=== PATIENT | male | born 1960 | race Hispanic/Latino ===

== ENCOUNTER 2019-03-12 17:29 | Emergency (ER) | payer SELFPAY ==
--- NOTE | 2019-03-12 17:46 | Event Note ---
ED Screening Note Date of service: 03/12/19 Time: 17:41 ED Screening Note: This is a 58 y.o. M. that presents to the ER for medical clearance for detox and [place]. States discharged from [facility] today. Patient states he started drinking after discharge because he is having a bad da y. This initial assessment/diagnostic orders/clinical plan/treatment(s) is/are subject to change based on patients health status, clinical progression and re- assessment by fellow clinical providers in the ED. Further treatment and workup at subsequent clinical providers discretion. Patient/guardian urged not to elope from the ED as their condition may be serious if not clinically assessed and amando fuller. Initial orders include: Labs
[2019-03-12 18:18] LABS: Basophils # (Auto) 0.1 K/mm3 (0.0-0.1); Basophils % (Auto) 0.6 % (0.0-1.8); Eosinophils # (Auto) 0.2 K/mm3 (0.0-0.4); Eosinophils % (Auto) 2.3 % (0.0-4.3); Hematocrit 38.3 % (35.5-45.6); Hemoglobin 12.8 gm/dl (11.8-15.2); Lymphocytes # (Auto) 3.2 K/mm3 (1.2-5.4); Lymphocytes % (Auto) 31.7 % (13.4-35.0); Mean Corpuscular HGB Conc 34 % (32-34); Mean Corpuscular Volume 89 fl (84-94); Monocytes # (Auto) 0.8 K/mm3 (0.0-0.8); Monocytes % (Auto) 8.1 % (0.0-7.3); Platelet Count 173 K/mm3 (140-440); Red Cell Distribution Width 14.2 % (13.2-15.2)
[2019-03-12 18:38] LABS: BUN/Creatinine Ratio 21; Blood Urea Nitrogen 17 mg/dL (9-20); Calcium 8.8 mg/dL (8.4-10.2); Hemolysis Index 2
[2019-03-12 20:07] VITALS: BP 129/67
[2019-03-12] MEDS ORDERED: LORazepam 2 MG/ML VIAL IM PRN (20:25)
[2019-03-12] MEDS ORDERED: HALOPERIDOL LACTATE 5 MG/1 ML INJ IM PRN (20:25)
--- NOTE | 2019-03-12 20:25 | Emergency Department Report ---
ED Alcohol HPI - General Chief Complaint: Alcohol Stated Complaint: ALCOHOLISM Time Seen by Provider: 03/12/19 17:41 Source: patient, RN notes reviewed Mode of arrival: Ambulatory Limitations: Other (alcohol intoxication) - History of Present Illness Initial Comments: This is a 58-year-old gentleman. This patient is not known to this provider previously. Patient has a history of alcohol abuse, alcoholic ptosis, and alcohol dependence. The patient presents to the ER with a primary complaint to me of "I just want to sleep." He denies physical pain, and denies overdose. He makes no request for Ativan. MD Complaint: alcohol intoxication Last Drink: just MARZIPAN [employer]KER Chronic Alcohol Use: Yes Previous Visits for Alcohol Intoxication?: Yes Recent Trauma: No Associated Symptoms: denies other symptoms Treatments Prior to Arrival: none - Related Data Home Medications Medication Instructions Recorded Confirmed Last Taken Quetiapine Fumarate [SEROquel] 300 mg PO HS 03/13/19 03/13/19 Unknown Sertraline [Zoloft] 50 mg PO QDAY 03/13/19 03/13/19 03/12/19 Previous Rx's Medication Instructions Recorded Last Taken Type Multivitamin with Folic Acid [Cvs 400 mcg PO QDAY #30 tablet 03/13/19 Unknown Rx One Daily Essential Tablet] chlordiazePOXIDE [Librium] 25 mg PO Q6H PRN #25 capsule 03/13/19 Unknown Rx Allergies Allergy/AdvReac Type Severity Reaction Status Date / Time No Known Allergies Allergy Verified 11/12/17 17:06 ED Review of Systems ROS: Stated complaint: ALCOHOLISM Other details as noted in HPI Constitutional: denies: fever Eyes: denies: eye discharge ENT: denies: congestion Respiratory: denies: SOB with exertion Cardiovascular: denies: chest pain Gastrointestinal: denies: abdominal pain Neurological: denies: weakness Psychiatric: denies: homicidal thoughts, suicidal thoughts ED Past Medical Hx - Past Medical History Hx Hypertension: Yes Hx Congestive Heart Failure: No Hx Diabetes: No Hx Seizures: Yes Hx Psychiatric Treatment: Yes (Bipolar) Hx Asthma: No Hx COPD: No - Surgical History Additional Surgical History: trach - Social History Smoking Status: Never Smoker Substance Use Type: Alcohol - Medications Home Medications: Home Medications Medication Instructions Recorded Confirmed Last Taken Type Multivitamin with Folic Acid [Cvs 400 mcg PO QDAY #30 tablet 03/13/19 03/13/19 Unknown Rx One Daily Essential Tablet] Quetiapine Fumarate [SEROquel] 300 mg PO HS 03/13/19 03/13/19 Unknown History Sertraline [Zoloft] 50 mg PO QDAY 03/13/19 03/13/19 03/12/19 History chlordiazePOXIDE [Librium] 25 mg PO Q6H PRN #25 capsule 03/13/19 03/13/19 Unknown Rx ED Physical Exam - General Limitations: Other (intoxication) General appearance: alert, appears intoxicated - Head Head exam: Present: atraumatic, normocephalic - Eye Eye exam: Present: normal appearance, EOMI - ENT ENT exam: Present: normal exam, normal orophraynx, mucous membranes moist, normal external ear exam - Neck Neck exam: Present: normal inspection, full ROM. Absent: tenderness, meningismus - Respiratory Respiratory exam: Present: normal lung sounds bilaterally. Absent: respiratory distress - Cardiovascular Cardiovascular Exam: Present: regular rate, normal rhythm, normal heart sounds. Absent: bradycardia, tachycardia, irregular rhythm, systolic murmur, diastolic murmur, rubs, gallop - GI/Abdominal GI/Abdominal exam: Present: soft. Absent: distended, tenderness, guarding, rebound, rigid, pulsatile mass - Rectal Rectal exam: Present: deferred - Extremities Exam Extremities exam: Present: normal inspection, full ROM, other (2+ pulses noted in the bilateral upper, lower extremities. There is no long bone tenderness. Musculoskeletal compartments are soft. The pelvis is stable.). Absent: pedal edema, joint swelling, calf tenderness - Back Exam Back exam: Present: normal inspection, full ROM. Absent: tenderness, CVA tenderness (R), CVA tenderness (L), paraspinal tenderness, vertebral tenderness - Neurological Exam Neurological exam: Present: alert, other (there is no facial droop. The tongue is midline. The extraocular movements are intact bilaterally. Walking with a slightly unsteady gait. Sensation is intact to light touch in 4 extremities. 5/5 strength 4 extremities) - Psychiatric Psychiatric exam: Present: normal affect, normal mood - Skin Skin exam: Present: warm, dry, intact, normal color. Absent: rash ED Course Vital Signs 03/12/19 03/12/19 17:35 20:04 Temperature 96.6 F L 98 F Pulse Rate 96 H 97 H Respiratory 16 18 Rate Blood Pressure 131/84 Blood Pressure 129/67 [Left] O2 Sat by Pulse 97 95 Oximetry - Reevaluation(s) Reevaluation #1: 03/12/19 23:29 Differential diagnosis, including about limited to: Alcohol intoxication Assessment and plan: 58-year-old gentleman who is clinically intoxicated, initially living currently in his stretcher, who has not endorsed any complaints to myself. His external physical exam is unremarkable. Clinically, does not appear to be in any acute distress. There is no evidence of blunt trauma. Will observe for clinical sobriety. His exam at this point time is not consistent with alcohol withdrawal. The patient does not appear to have an acute medical emergency at this time. He does not appear to have an acute psychiatric emergency at this time. He is sleeping comfortably in his stretcher, and is in no acute distress. Nursing team to contact family to see if they can arrange pickup. The patient is medically suitable for placement in detox at this time, or can be medically cleared to go home, if family to pick him up Reevaluation #2: 03/13/19 01:24 Reassessed. Still intoxicated. Still walking with an unsteady gait. Cannot care for himself independently at this time secondary to intoxication. We'll phone calls made to the sister's phone number, no answer. Care will be transferred to the oncoming physician, Dr. Russell Sparrow, to d/c when clinically sober or when family able to come by and take care of the patient ED Medical Decision Making - Lab Data Result diagrams: 03/12/19 18:02 03/12/19 18:02 Vital Signs 03/12/19 03/12/19 17:35 20:04 Temperature 96.6 F L 98 F Pulse Rate 96 H 97 H Respiratory 16 18 Rate Blood Pressure 131/84 Blood Pressure 129/67 [Left] O2 Sat by Pulse 97 95 Oximetry Lab Results 03/12/19 03/12/19 03/12/19 Range/Units 18:00 18:00 18:02 WBC (4.5-11.0) K/mm3 RBC (3.65-5.03) M/mm3 Hgb (11.8-15.2) gm/dl Hct (35.5-45.6) % MCV (84-94) fl MCH (28-32) pg MCHC (32-34) % RDW (13.2-15.2) % Plt Count (140-440) K/mm3 Lymph % (Auto) (13.4-35.0) % [place] % (Auto) (0.0-7.3) % Eos % (Auto) (0.0-4.3) % Baso % (Auto) (0.0-1.8) % Lymph # (1.2-5.4) K/mm3 [place] # (0.0-0.8) K/mm3 Eos # (0.0-0.4) K/mm3 Baso # (0.0-0.1) K/mm3 Seg Neutrophils % (40.0-70.0) % Seg Neutrophils # (1.8-7.7) K/mm3 Sodium (137-145) mmol/L Potassium (3.6-5.0) mmol/L Chloride (98-107) mmol/L Carbon Dioxide (22-30) mmol/L Anion Gap mmol/L BUN (9-20) mg/dL Creatinine (0.8-1.5) mg/dL Estimated GFR ml/min BUN/Creatinine Ratio % Glucose (75-100) mg/dL Calcium (8.4-10.2) mg/dL Magnesium 2.30 (1.7-2.3) mg/dL Total Creatine Kinase 236 H (55-170) units/L Salicylates < 0.3 L (2.8-20.0) mg/dL Acetaminophen (10.0-30.0) ug/mL Bruce 0.1 (0.0-1.2) mmol/L Plasma/Serum Alcohol (0-0.07) % 03/12/19 03/12/19 03/12/19 Range/Units 18:02 18:02 18:02 WBC (4.5-11.0) K/mm3 RBC (3.65-5.03) M/mm3 Hgb (11.8-15.2) gm/dl Hct (35.5-45.6) % MCV (84-94) fl MCH (28-32) pg MCHC (32-34) % RDW (13.2-15.2) % Plt Count (140-440) K/mm3 Lymph % (Auto) (13.4-35.0) % [place] % (Auto) (0.0-7.3) % Eos % (Auto) (0.0-4.3) % Baso % (Auto) (0.0-1.8) % Lymph # (1.2-5.4) K/mm3 [place] # (0.0-0.8) K/mm3 Eos # (0.0-0.4) K/mm3 Baso # (0.0-0.1) K/mm3 Seg Neutrophils % (40.0-70.0) % Seg Neutrophils # (1.8-7.7) K/mm3 Sodium 142 (137-145) mmol/L Potassium 3.8 (3.6-5.0) mmol/L Chloride 105.2 (98-107) mmol/L Carbon Dioxide 20 L (22-30) mmol/L Anion Gap 21 mmol/L BUN 17 (9-20) mg/dL Creatinine 0.8 (0.8-1.5) mg/dL Estimated GFR > 60 ml/min BUN/Creatinine Ratio 21 % Glucose 103 H (75-100) mg/dL Calcium 8.8 (8.4-10.2) mg/dL Magnesium (1.7-2.3) mg/dL Total Creatine Kinase (55-170) units/L Salicylates (2.8-20.0) mg/dL Acetaminophen < 5.0 L (10.0-30.0) ug/mL Bruce (0.0-1.2) mmol/L Plasma/Serum Alcohol 0.17 H (0-0.07) % //19 Range/Units 18:02 WBC 10.1 (4.5-11.0) K/mm3 RBC 4.30 (3.65-5.03) M/mm3 Hgb 12.8 (11.8-15.2) gm/dl Hct 38.3 (35.5-45.6) % MCV 89 (84-94) fl MCH 30 (28-32) pg MCHC 34 (32-34) % RDW 14.2 (13.2-15.2) % Plt Count 173 (140-440) K/mm3 Lymph % (Auto) 31.7 (13.4-35.0) % [place] % (Auto) 8.1 H (0.0-7.3) % Eos % (Auto) 2.3 (0.0-4.3) % Baso % (Auto) 0.6 (0.0-1.8) % Lymph # 3.2 (1.2-5.4) K/mm3 [place] # 0.8 (0.0-0.8) K/mm3 Eos # 0.2 (0.0-0.4) K/mm3 Baso # 0.1 (0.0-0.1) K/mm3 Seg Neutrophils % 57.3 (40.0-70.0) % Seg Neutrophils # 5.8 (1.8-7.7) K/mm3 Sodium (137-145) mmol/L Potassium (3.6-5.0) mmol/L Chloride (98-107) mmol/L Carbon Dioxide (22-30) mmol/L Anion Gap mmol/L BUN (9-20) mg/dL Creatinine (0.8-1.5) mg/dL Estimated GFR ml/min BUN/Creatinine Ratio % Glucose (75-100) mg/dL Calcium (8.4-10.2) mg/dL Magnesium (1.7-2.3) mg/dL Total Creatine Kinase (55-170) units/L Salicylates (2.8-20.0) mg/dL Acetaminophen (10.0-30.0) ug/mL Bruce (0.0-1.2) mmol/L Plasma/Serum Alcohol (0-0.07) % - EKG Data -: EKG Interpreted by Vt - EKG Data 03/12/19 23:32 The EKG is a sinus rhythm, 91 beats minute, left axis, left anterior fascicular block, poor wave progression, QTC 446 ms, this is an abnormal EKG, there is no endorsement of chest pain, the EKG is not consistent with ST elevation myocardial infarction Critical care attestation.: If time is entered above; I have spent that time in minutes in the direct care of this critically ill patient, excluding procedure time. ED Disposition Clinical Impression: Alcohol abuse Disposition: DC-01 TO HOME OR SELFCARE Is pt being admited?: No Does the pt Need Aspirin: No Condition: Stable Instructions: Alcohol Intoxication (ED) Additional Instructions: Discontinue or minimize alcohol consumption. Take the medications as needed/directed. Follow up with the primary care doctor within the next month. Return to the emergency room right away with new, worsening or different symptoms not present on the initial emergency room evaluation. Long-term complications of chronic alcohol consumption included disability, addiction, paralysis, loss of quality of life. Prescriptions: Multivitamin with Folic Acid [Cvs One Daily Essential Tablet] 400 mcg PO QDAY #30 tablet chlordiazePOXIDE [Librium] 25 mg PO Q6H PRN #25 capsule PRN Reason: Alcohol Withdrawal Referrals: [facility] [Provider Group] - 3-5 Days [facility] [Provider Group] - 3-5 Days
== END 2019-03-13 06:50 | disposition home or self-care (01) ==
LOC: ED 17:29
DX: F10.129 Alcohol abuse with intoxication, unspecified (principal); I10 Essential (primary) hypertension; F31.9 Bipolar disorder, unspecified; Z79.899 Other long term (current) drug therapy
CPT/HCPCS: 36415; 80048; 80178; 80320; 82550; 83735; 85025; 93005; 93010; G0480

== ENCOUNTER 2019-03-13 08:51 | Inpatient (IN) | payer MEDICARE ==
--- NOTE | 2019-03-13 09:19 | Emergency Department Report ---
HPI - General Chief Complaint: Medical Clearance Time Seen by Provider: 03/13/19 09:11 - HPI HPI: 58-year-old male presents to the emergency department through triage with what appears to be alcohol intoxication. However the patient does appear to have a right-sided facial droop that was not previously seen or recorded from his ER visit yesterday. The patient does admit to history of alcoholism and bipolar disorder. He says that he was staying with his sister last night and started drinking this morning. There is also some report of the patient recently being at [facility]. However during the patient's ER visit yesterday he was discharged home to family's care. Since there is no previous history of facial droop, although there is some history of some type of alcoholic ptosis, a code stroke has been called. The patient is a poor historian secondary to his current condition. I attempted to call his sister to corroborate his story and see if there is any history of facial droop, Jesusitagoyo Barajas at [phone] but there was no answer and the voicemail was full. The patient's sister did call back and was able to provide some further information. Patient was at [facility] up until his discharge yesterday and she went to pick him up around 4 PM. When she did arrive the patient was already drunk, which was the reason he was at the facility to begin with for his alcohol dependence. She then tried to check him back in to get him help but she was referred to [facility]. They went to [facility] but was told they could not help him as he is currently intoxicated and was told to go to the emergency department. The patient was here until he was deemed clinically sober and was then discharged. The patient's sister did not know that he was discharged and he did not stay with her last night. It appears that the patient has been wandering around and then started drinking again. She says that he did not have any signs of facial droop when she left him yesterday at around 6:45 PM. However she says that he has "had this before and has a history of TIAs." ED Past Medical Hx - Past Medical History Previous Medical History?: Yes Hx Hypertension: Yes Hx Congestive Heart Failure: No Hx Diabetes: No Hx Seizures: Yes Hx Psychiatric Treatment: Yes (Bipolar) Hx Asthma: No Hx COPD: No - Surgical History Past Surgical History?: Yes Additional Surgical History: trach - Social History Smoking Status: Never Smoker Substance Use Type: Alcohol - Medications Home Medications: Home Medications Medication Instructions Recorded Confirmed Last Taken Type Multivitamin with Folic Acid [Cvs 400 mcg PO QDAY #30 tablet 03/13/19 03/13/19 Unknown Rx One Daily Essential Tablet] Quetiapine Fumarate [SEROquel] 300 mg PO HS 03/13/19 03/13/19 Unknown History Sertraline [Zoloft] 50 mg PO QDAY 03/13/19 03/13/19 03/12/19 History chlordiazePOXIDE [Librium] 25 mg PO Q6H PRN #25 capsule 03/13/19 03/13/19 Unknown Rx ED Review of Systems ROS: Stated complaint: MEDICAL CLEARANCE Other details as noted in HPI Comment: Unobtainable due to pts medical conditions Physical Exam - Physical Exam Physical Exam: GENERAL: The patient is well-developed well-nourished. HENT: Normocephalic. Atraumatic. Patient has moist mucous membranes. EYES: Extraocular motions are intact. Pupils equal reactive to light bilaterally. NECK: Supple. Trachea is midline. CHEST/LUNGS: Clear to auscultation. There is no respiratory distress noted. HEART/CARDIOVASCULAR: Regular. There is no tachycardia. There is no murmur. ABDOMEN: Abdomen is soft, nontender. Patient has normal bowel sounds. There is no abdominal distention. SKIN: Skin is warm and dry. NEURO: Patient is awake and oriented but does appear intoxicated. There is a right-sided is a labial fold paresis. Patient has slurred speech. MUSCULOSKELETAL: There is no tenderness or deformity. There is no limitation range of motion. There is no evidence of acute injury. ED Course - Consultations Consultation #1: Immediately after CT scan of the head was performed, the patient was seen by the telemedicine neurologist, Dr. Walker. He got a NIH stroke scale of 3 on his evaluation. He agrees that the patient is not a TPA candidate and does not require CT angiography studies but does recommend admission for MRI and further stroke workup. 03/13/19 15:33 ED Medical Decision Making - Lab Data Result diagrams: 03/13/19 10:08 03/13/19 10:08 - EKG Data -: EKG Interpreted by Me EKG shows normal: sinus rhythm, axis, intervals (prolonged VA interval), QRS complexes, ST-T waves Rate: normal - EKG Data When compared to previous EKG there are: previous EKG unavailable Interpretation: other (sinus, prolonged VA interval. No STEMI) - Radiology Data Radiology results: report reviewed CT head without contrast INDICATION : Stroke symptoms. TECHNIQUE: Axial imaging performed from the skull apex through the skull base without the use of contrast. All CT scans at this location are performed using CT dose reduction for ALARA by means of automated exposure control. COMPARISON: None FINDINGS: Parenchyma: No acute intracranial hemorrhage or parenchymal abnormality. Ventricles: Ventricles are normal in size and appear symmetric. Soft tissues: Soft tissues including the orbits appear normal. Bones: No acute osseous abnormality. Sinuses: Sinuses and mastoid air cells are clear. IMPRESSION: No acute abnormality. - Medical Decision Making This patient presents to the emergency department this morning through triage s tumbling, slurring his speech, diaphoretic, and with what appears to be a right- sided facial droop. The patient was here last night for alcohol intoxication and there was no record of there being a facial droop at that time. The patient's sister also confirms that while he does have a history of TIAs that he did not have a facial droop when she saw him yesterday evening as well. For this reason a code stroke was called. CT scan of the head without contrast did not show any acute intracranial abnormalities. The telemedicine neurologist on the patient and got a NIH stroke scale of 3. He does not appear to be a TPA candidate and does not require CT angiography studies but it was recommended that the patient be admitted for MRI of the brain and further stroke workup. His labs were mostly unremarkable except for a blood alcohol level of 0.22. Some of the patient's symptoms may be secondary to his alcohol intoxication but CVA/TIA cannot be ruled out at this time. Vital signs stable throughout his ED course. The patient was accepted for admission by the hospitalist service. - Differential Diagnosis CVA, TIA, alcohol intoxication Critical Care Time: Yes Critical care time in (mins) excluding proc time.: 31 Critical care attestation.: If time is entered above; I have spent that time in minutes in the direct care of this critically ill patient, excluding procedure time. Critical care time was spent on this patient and doing his initial evaluation, multiple re-evaluations, ordering and interpretation of labs and imaging, discussion with the telemedicine neurologist, discussion with the patient's sister. Critical Care Time: 31 minutes ED Disposition Clinical Impression: Alcohol abuse Stroke Qualifiers: CVA mechanism: unspecified Qualified Code(s): I63.9 - Cerebral infarction, unspecified Alcohol dependence Qualifiers: Substance use status: unspecified alcohol-induced disorder Qualified Code(s): F10.29 - Alcohol dependence with unspecified alcohol-induced disorder Disposition: DC-09 OP ADMIT IP TO THIS HOSP Is pt being admited?: Yes Condition: Serious Time of Disposition: 10:52
[2019-03-13] MEDS ORDERED: ASPIRIN 81 MG TAB CHEW PO ONE (09:48)
--- NOTE | 2019-03-13 09:48 | Emergency Department Report ---
ED Neuro Deficit HPI - General Chief Complaint: Medical Clearance Stated Complaint: MEDICAL CLEARANCE Time Seen by Provider: 03/13/19 09:11 Source: patient Mode of arrival: Ambulatory Limitations: No Limitations - History of Present Illness Initial Comments: [facility] Consult Services TeleStroke Metrics: LKW: 1800 yesterday Door Time: 0851 [facility] Contacted: 0916 [facility] at Bedside: 0920 NIHSS: 0934 Decision on Alteplase: Not to give as the patient's last known well time was yesterday. Interventional Candidate: Not a candidate as his symptoms are not consistent with a large vessel proximal occlusion. Chief Complaint: Altered mental status and right facial droop HPI: Asked to see this patient in emergent telemedicine consultation utilizing interactive audio and video technologies. ?Consultation was performed with assistance of ancillary / medical staff at bedside. ? Verbal consent to perform the examination with telemedicine was obtained. Patient agreed to proceed with the consultation for acute stroke protocol. 58-year-old left-handed white male who returns to the emergency room today for confusion and now right facial droop. Patient does not take any aspirin at baseline. He states he takes lithium, Zoloft, and Seroquel for his bipolar disorder. He recently started taking Ativan. He also reports a history of TIA last March, but cannot describe the symptoms. Patient has a long-standing history of alcohol abuse. Back in October 2018, he was admitted for tremors and alcoholic ketoacidosis. Patient apparently was discharged from an outside hospital yesterday on 03/12. He started drinking again and wanted to go to a detox center. However, he nee ded medical clearance and had come to [facility] ER last night. According to the ER team, the patients sister last saw him fine at 6 PM last night where he did not have a facial droop. Patient's labs were stable, and he was discharged from the ER last night. Patient apparently has been wondering throughout the streets and continues to drink. He comes back this morning confused and intoxicated. He was noted to have a new right facial droop. PMH: Bipolar disorder and TIA SOC: Negative for tobacco abuse or illicit drug use. Long-standing alcohol abuse. He lives with family. FMH: Negative for stroke. Positive for hypertension. ROS: 13 point review of systems were reviewed with the patient, and are all negative with the exception of the aforementioned in the history of present illness. VS: Blood pressure 136/81 Exam: Patient is in no apparent distress. Patient appears as stated age. No obvious acute respiratory or cardiac distress. Patient is well groomed and well-nourished. 1a- LOC: Keenly responsive - 0 1b- LOC questions: Answers both questions correctly - 0 1c- LOC commands- Performs both tasks correctly- 0 2- Gaze: Normal; no gaze paresis or gaze deviation - 0 3- Visual Antoine: normal, no Visual field deficit - 0 4- Facial movements: right facial palsy - 1 5- Upper limb motor right arm drift - 1 6- Lower limb motor - no drift - 0 7- Limb Coordination: absent ataxia - 0 8- Sensory: no sensory loss - 0 9- Language - No aphasia - 0 10- Speech - Mild dysarthria - 1 11- Neglect / Extinction - none found - 0 NIHSS score: 3 Diagnostic Data: CT head results are pending Labs from yesterday: WBC 10.1, hemoglobin 12.8, platelets 173, sodium 142, potassium 3.8, BUN 17, trending 0.8, blood glucose 103, alcohol level 0.17% Medical Data Reviewed: 1.Data?reviewed include clinical labs, radiology,?and medical tests;?? 2.Tests?results discussed w/performing or interpreting physician;?? 3.Obtaining/reviewing old medical records;? 4.Obtaining?case history from another source;? 5.Independent?review of image, tracing, or specimen.? Medical Decision Making: - Extensive number of diagnosis or management options are considered below.?? - Extensive amount of complex data reviewed.?? - High risk of complication and/or morbidity or mortality are associated with differential diagnostic considerations below.? - There may be?uncertain?outcome and increased probability of prolonged functional impairment or high probability of severe prolonged functional impairment associated with some of these differential diagnosis.? Differential Diagnosis for Stroke: 1.?Cardioembolic?stroke? 2. Small vessel disease/lacune? 3. Thromboembolic, [id number] mechanism? 4.?Hypercoagulable?state-related infarct? 5. Transient ischemic attack? 6. Thrombotic mechanism, large artery disease? Assessment: 1. Possible left MCA stroke 2. Alcohol intoxication Recommendations: Patient can be admitted to the hospital for further stroke work-up. Start the patient on a baby aspirin. Check MRI brain without contrast to rule out any acute intracranial process. Check MRA of the head and neck to evaluate his intracranial and extracranial blood vessels. Maintain the patient alcohol withdrawal protocol. Check echocardiogram to gauge his cardiac function. Maintain the patient on telemetry to look for paroxysmal atrial fibrillation. Check hemoglobin A1c and lipid panel. Consult PT, OT, and ST. Continue supportive care. Thank you for allowing [facility] to participate in the care of your patient. Please call me, Dr. Walker, with any questions at [phone]. Case discussed with the ER staff and Dr. Benito. Critical Care notation: I was called to see this critical patient emergently. I personally evaluated this critical patient for acute stroke evaluation, and determining their eligibility for IV Alteplase and interventional therapies. I have spent approximately 15 minutes with the patient, including time at bedside, time discussing the case with other physicians, reviewing plan of care, and time independently reviewing the records and scans.? - Related Data Home Medications: Home Medications Medication Instructions Recorded Confirmed Last Taken Bath 1,200 mg PO DAILY 03/12/19 03/12/19 Unknown SEROquel 300 mg PO HS 03/12/19 03/12/19 Unknown Zoloft 50 mg PO DAILY 03/12/19 03/12/19 Unknown Previous Rx's Medication Instructions Recorded Last Taken Type Multivitamin with Folic Acid [Cvs 400 mcg PO QDAY #30 tablet 03/13/19 Unknown Rx One Daily Essential Tablet] chlordiazePOXIDE [Librium] 25 mg PO Q6H PRN #25 capsule 03/13/19 Unknown Rx Allergies/Adverse Reactions: Allergies Allergy/AdvReac Type Severity Reaction Status Date / Time No Known Allergies Allergy Verified 11/12/17 17:06 ED Review of Systems ROS: Stated complaint: MEDICAL CLEARANCE Other details as noted in HPI ED Past Medical Hx - Past Medical History Previous Medical History?: Yes Hx Hypertension: Yes Hx Congestive Heart Failure: No Hx Diabetes: No Hx Seizures: Yes Hx Psychiatric Treatment: Yes (Bipolar) Hx Asthma: No Hx COPD: No - Surgical History Past Surgical History?: Yes Additional Surgical History: trach - Social History Smoking Status: Never Smoker Substance Use Type: Alcohol - Medications Home Medications: Home Medications Medication Instructions Recorded Confirmed Last Taken Type Bath 1,200 mg PO DAILY 03/12/19 03/12/19 Unknown History SEROquel 300 mg PO HS 03/12/19 03/12/19 Unknown History Zoloft 50 mg PO DAILY 03/12/19 03/12/19 Unknown History Multivitamin with Folic Acid [Cvs 400 mcg PO QDAY #30 tablet 03/13/19 Unknown Rx One Daily Essential Tablet] chlordiazePOXIDE [Librium] 25 mg PO Q6H PRN #25 capsule 03/13/19 Unknown Rx ED Neuro Physical Exam - General Limitations: No Limitations Suspected Stroke: Yes - NIHSS Assessment Interval: Baseline 1a. Level of Consciousness: alert/keenly responsive 1b. LOC Questions: answers both correctly 1c. LOC Commands: performs tasks correctly 2. Best Gaze: normal 3. Visual: no visual loss 4. Facial Palsy: minor paralysis 5b. Motor Arm Right: drift 5a. Motor Arm Left: no drift 6a. Motor Leg Left: no drift 6b. Motor Leg Right: no drift 7. Limb Ataxia: absent 8. Sensory: normal 9. Best Language: no aphasia 10. Dysarthria: mild/moderate dysarthria 11. Extinction/Inattention: no abnormality Total Score: 3 Stroke Severity: Minor Stroke - Lab Data Lab Results 03/13/19 Range/Units 09:25 POC Glucose 110 H (70-105) Critical care attestation.: If time is entered above; I have spent that time in minutes in the direct care of this critically ill patient, excluding procedure time. ED Disposition Clinical Impression: Stroke Disposition: - OP ADMIT IP TO THIS HOSP Is pt being admited?: Yes Does the pt Need Aspirin: Yes Condition: Stable Referrals: PRIMARY CARE, [Referring] - 3-5 Days
--- NOTE | 2019-03-13 09:49 | Cat Scan Report ---
CT head without contrast INDICATION : Stroke symptoms. TECHNIQUE: Axial imaging performed from the skull apex through the skull base without the use of con trast. All CT scans at this location are performed using CT dose reduction for ALARA by means of aut omated exposure control. COMPARISON: None FINDINGS: Parenchyma: No acute intracranial hemorrhage or parenchymal abnormality. Ventricles: Ventricles are normal in size and appear symmetric. Soft tissues: Soft tissues including the orbits appear normal. Bones: No acute osseous abnormality. Sinuses: Sinuses and mastoid air cells are clear. IMPRESSION: No acute abnormality. COMMUNICATION: Time of Communication (BATCH PLANT OPERATOR/CDT): 8:44 AM Licensed Practitioner Receiving Report: Dr. Benito Signer Name: Jayme Carlisle MD Signed: 03/13/2019 9:44 AM Workstation Name: [id number]
[2019-03-13 10:20] LABS: Basophils # (Auto) 0.1 K/mm3 (0.0-0.1); Basophils % (Auto) 0.8 % (0.0-1.8); Eosinophils # (Auto) 0.2 K/mm3 (0.0-0.4); Eosinophils % (Auto) 2.3 % (0.0-4.3); Hematocrit 38.4 % (35.5-45.6); Hemoglobin 12.9 gm/dl (11.8-15.2); Lymphocytes % (Auto) 27.5 % (13.4-35.0); Mean Corpuscular HGB Conc 34 % (32-34); Mean Corpuscular Volume 90 fl (84-94); Monocytes # (Auto) 0.6 K/mm3 (0.0-0.8); Monocytes % (Auto) 8.2 % (0.0-7.3); Platelet Count 171 K/mm3 (140-440); Red Blood Count 4.28 M/mm3 (3.65-5.03); Red Cell Distribution Width 14.2 % (13.2-15.2)
[2019-03-13 10:29] LABS: INR 1.11 (0.87-1.13)
[2019-03-13 10:34] LABS: Creatine Kinase MB 6.5 ng/mL (0.0-4.0)
[2019-03-13 10:36] LABS: Alanine Aminotransferase 14 units/L (7-56); Albumin 4.3 g/dL (3.9-5); BUN/Creatinine Ratio 20; Blood Urea Nitrogen 14 mg/dL (9-20); Calcium 8.6 mg/dL (8.4-10.2); Hemolysis Index 1
[2019-03-13 10:39] LABS: Partial Thromboplastin Time 26.4 Sec. (24.2-36.6)
[2019-03-13] MEDS ORDERED: THIAMINE 100 MG, FOLIC ACID 1 MG, MULTIPLE VITAMIN INJ, ADULT 10 ML in SODIUM CHLORIDE ... IV ONE (11:00)
[2019-03-13 11:19] LABS: Bilirubin,Urine NEG (Negative); Blood,Urine SM (Negative); Color,Urine Straw (Yellow); Mucus,Urine FEW /HPF; Protein,Urine <15 mg/dL mg/dL (Negative); Urobilinogen,Urine < 2.0 mg/dL (<2.0)
[2019-03-13 11:28] LABS: Amphetamine Screen,Urine PRESUMPTIVE NEGATIVE; Benzodiazepines Screen,Urine PRESUMPTIVE NEGATIVE; Cannabinoid Screen,Urine PRESUMPTIVE NEGATIVE; Cocaine Screen,Urine PRESUMPTIVE NEGATIVE; Methadone Screen,Urine PRESUMPTIVE NEGATIVE; Opiate Screen,Urine PRESUMPTIVE NEGATIVE
[2019-03-13] MEDS ORDERED: ASPIRIN 81 MG TAB CHEW ONE (11:43)
[2019-03-13] MEDS ORDERED: ACETAMINOPHEN 325 MG TAB PO PRN (12:06)
[2019-03-13] MEDS ORDERED: MORPHINE 2 MG/1 ML INJ IV PRN (12:06)
[2019-03-13] MEDS ORDERED: ONDANSETRON 4 MG/2 ML INJ IV PRN (12:06)
[2019-03-13] MEDS ORDERED: chlordiazePOXIDE 25 MG CAP PO PRN (12:13)
[2019-03-13] MEDS: ENOXAPARIN 40 MG/0.4 ML INJ SUB-Q SCH (12:36)
--- NOTE | 2019-03-13 17:15 | History and Physical Report ---
History of Present Illness Date of examination: 03/13/19 Date of admission: 03/13/19 10:52 Chief complaint: Facial droop rule out stroke. History of present illness: Patient is a 58-year-old male that presents to ED with confusion and right facial droop. Patient has a history of EtOH abuse. Patient was actually seen and admitted to [facility]. Patient was just discharged yesterday and one sister arrived to the facility patient already had been drinking. They were unsuccessful to get the ration back in another rehabilitation facility [facility] and therefore went home. Patient did not stay for extremely short period of time and began drinking again. Patient family member noted that he may have had a right facial droop. Therefore patient was admitted to evaluate for stroke. At this present time patient states that he denied any headache fever chills he did state that when he drinks sometimes is happening and patient also states that this facial asymmetry is old and not new. Patient is bottle course was complicated by him going into alcohol withdrawal. When he became extremely agitated and pulled IV lines out and required down time. Therefore further history was unavailable secondary to behavior. A shunt was noted to be on medications including lithium Zoloft and Seroquel. Also patient states he just started Ativan recently. Head CT in ED was normal. She denied any fever or chills no nausea vomiting no chest pain or shortness of breath. Past History Past Medical History: GERD. denies: acute MA, atrial fib, arrhythmia, anemia, arthritis, CAD, cancer, diabetes, DVT, ESRD, heart failure, hepatitis, hyperthyroidism, hypertension, liver disease, pulmonary embolism, stroke Past Surgical History: No surgical history Social history: no significant social history, single, lives with family, alcohol abuse Family history: no significant family history Medications and Allergies Allergies Allergy/AdvReac Type Severity Reaction Status Date / Time No Known Allergies Allergy Verified 11/12/17 17:06 Home Medications Medication Instructions Recorded Confirmed Last Taken Type Multivitamin with Folic Acid [Cvs 400 mcg PO QDAY #30 tablet 03/13/19 03/13/19 Unknown Rx One Daily Essential Tablet] Quetiapine Fumarate [SEROquel] 300 mg PO HS 03/13/19 03/13/19 Unknown History Sertraline [Zoloft] 50 mg PO QDAY 03/13/19 03/13/19 03/12/19 History chlordiazePOXIDE [Librium] 25 mg PO Q6H PRN #25 capsule 03/13/19 03/13/19 U nknown Rx Active Meds: Active Medications Acetaminophen (Tylenol) 650 mg PO Q4H PRN PRN Reason: Pain MILD(1-3)/Fever >100.5/JHA Chlordiazepoxide HCl (Librium) 50 mg PO Q1HR PRN PRN Reason: Odette 8 Last Admin: 03/13/19 14:25 Dose: 50 mg Documented by: Enoxaparin Sodium (Lovenox) 40 mg SUB-Q QDAY [facility] Last Admin: 03/13/19 12:36 Dose: 40 mg Documented by: Lorazepam (Ativan) 2 mg IV Q1HR PRN PRN Reason: Odette 01-29 Morphine Sulfate (Morphine) 2 mg IV Q4H PRN PRN Reason: Pain, Moderate (4-6) Ondansetron HCl (Zofran) 4 mg IV Q8H PRN PRN Reason: Nausea And Vomiting Sodium Chloride (Sodium Chloride Flush Syringe 10 Ml) 10 ml IV BID [facility] Last Admin: 03/13/19 12:24 Dose: 10 ml Documented by: Sodium Chloride (Sodium Chloride Flush Syringe 10 Ml) 10 ml IV PRN PRN PRN Reason: LINE FLUSH Review of Systems Constitutional: no weight loss, no weight gain, no fever, no chills, no sweats, no night sweats, no anorexia, no malaise, no lethargy Ears, nose, mouth and throat: no ear pain, no tinnitis, no nasal congestion, no epistaxis, no bleeding gums, no mouth pain, no dysphagia, no hoarseness, no sore throat, no vertigo Cardiovascular: no chest pain, no orthopnea, no rapid/irregular heart beat, no edema, no lightheadedness, no shortness of breath, no paroxysmal nocturnal dyspnea, no decreased exercise tolerance Respiratory: no cough, no excessive sputum, no hemoptysis, no shortness of breath, no wheezing, no pleurisy, no pain, no sleep apnea, no respiratory infections, no home oxygen Gastrointestinal: no nausea, no vomiting, no diarrhea, no constipation, no change in bowel habits, no melena, no hematochezia, no loss of appetite, no early satiety Rectal: no pain, no incontinence, no bleeding, no hemorrhoids, no flatulence Musculoskeletal: muscle weakness, loss of height, no neck stiffness, no low back pain, no shooting leg pain, no redness of joints, no morning stiffness, no muscle cramps, no myalgias, no limitation of motion, no gait dysfunction Integumentary: no redness, no sores Neurological: weakness, lack of coordination, change in mentation, no head injury, no transient paralysis, no paralysis, no parathesias, no numbness, no tingling, no seizures, no syncope, no tremors, no ataxia, no vertigo, no headaches, no migraines, no convulsions, no motor disturbance, no sensory defi cit Psychiatric: anxiety, sleep disturbances, no insomnia, no change in appetite, no suicidal ideation, no hallucinations, no depression, no hopelessness, no anhedonia, no difficulties concentrating, no confusion, no sadness/tearfullness, no mood swings Endocrine: no cold intolerance, no heat intolerance, no excessive thirst, no polydipsia, no nocturia, no excessive sweating, no weight change, no deepening of the voice, no high blood sugars, no low blood sugars, no recent glucocorticoid use, no other Hematologic/Lymphatic: no easy bleeding, no thrombophilia Allergic/Immunologic: no allergic rhinitis Exam - Constitutional Vitals: Temp Pulse Resp BP Pulse Ox 97.9 F 75 18 138/89 95 03/13/19 16:13 03/13/19 16:13 03/13/19 16:13 03/13/19 16:13 03/13/19 16:13 General appearance: Present: no acute distress, well-nourished - EENT Eyes: Present: PERRL ENT: hearing intact, clear oral mucosa, other (patient does have facial asymmetry on the right side. Especially involving the lips. 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 Absent: rub, click - Extremities Extremities: pulses symmetrical, No edema Peripheral Pulses: within normal limits - Abdominal General gastrointestinal: Present: soft, non-tender, non-distended, normal bowel sounds Male genitourinary: Present: normal - Integumentary Integumentary: Present: clear, warm, dry - Musculoskeletal Musculoskeletal: gait normal, strength equal bilaterally - Psychiatric Psychiatric: appropriate mood/affect, intact judgment & insight - Neurologic Neurologic: CNII-XII intact, moves all extremities Results - Labs CBC & Chem 7: 03/13/19 10:08 03/13/19 10:08 Labs: Laboratory Last Values WBC 7.3 K/mm3 (4.5-11.0) 03/13/19 10:08 RBC 4.28 M/mm3 (3.65-5.03) 03/13/19 10:08 Hgb 12.9 gm/dl (11.8-15.2) 03/13/19 10:08 Hct 38.4 % (35.5-45.6) 03/13/19 10:08 MCV 90 fl (84-94) 03/13/19 10:08 MCH 30 pg (28-32) 03/13/19 10:08 MCHC 34 % (32-34) 03/13/19 10:08 RDW 14.2 % (13.2-15.2) 03/13/19 10:08 Plt Count 171 K/mm3 (140-440) 03/13/19 10:08 Lymph % (Auto) 27.5 % (13.4-35.0) 03/13/19 10:08 Alexander % (Auto) 8.2 % (0.0-7.3) H 03/13/19 10:08 Eos % (Auto) 2.3 % (0.0-4.3) 03/13/19 10:08 Baso % (Auto) 0.8 % (0.0-1.8) 03/13/19 10:08 Lymph # 2.0 K/mm3 (1.2-5.4) 03/13/19 10:08 Alexander # 0.6 K/mm3 (0.0-0.8) 03/13/19 10:08 Eos # 0.2 K/mm3 (0.0-0.4) 03/13/19 10:08 Baso # 0.1 K/mm3 (0.0-0.1) 03/13/19 10:08 Seg Neutrophils % 61.2 % (40.0-70.0) 03/13/19 10:08 Seg Neutrophils # 4.5 K/mm3 (1.8-7.7) 03/13/19 10:08 PT 14.0 Sec. (12.2-14.9) 03/13/19 10:08 INR 1.11 (0.87-1.13) 03/13/19 10:08 APTT 26.4 Sec. (24.2-36.6) 03/13/19 10:08 Sodium 143 mmol/L (137-145) 03/13/19 10:08 Potassium 3.6 mmol/L (3.6-5.0) 03/13/19 10:08 Chloride 105.6 mmol/L (98-107) 03/13/19 10:08 Carbon Dioxide 20 mmol/L (22-30) L 03/13/19 10:08 21 mmol/L 03/13/19 10:08 BUN 14 mg/dL (9-20) 03/13/19 10:08 0.7 mg/dL (0.8-1.5) L 03/13/19 10:08 Estimated GFR > 60 ml/min 03/13/19 10:08 20 % 03/13/19 10:08 Glucose 99 mg/dL (75-100) 03/13/19 10:08 POC Glucose 110 (70-105) H 03/13/19 09:25 Calcium 8.6 mg/dL (8.4-10.2) 03/13/19 10:08 0.70 mg/dL (0.1-1.2) 03/13/19 10:08 AST 18 units/L (5-40) 03/13/19 10:08 ALT 14 units/L (7-56) 03/13/19 10:08 71 units/L (35-129) 03/13/19 10:08 238 units/L (55-170) H 03/13/19 10:08 CK-MB (CK-2) 6.5 ng/mL (0.0-4.0) H 03/13/19 10:08 CK-MB (CK-2) Rel Index 2.7 (0-4) 03/13/19 10:08 < 0.010 ng/mL (0.00-0.029) 03/13/19 10:08 7.0 g/dL (6.3-8.2) 03/13/19 10:08 4.3 g/dL (3.9-5) 03/13/19 10:08 1.6 % 03/13/19 10:08 Straw (Yellow) 03/13/19 10:48 Clear (Clear) 03/13/19 10:48 6.0 (5.0-7.0) 03/13/19 10:48 Ur Specific [place] 1.008 (1.003-1.030) 03/13/19 10:48 <15 mg/dl mg/dL (Negative) 03/13/19 10:48 Neg mg/dL (Negative) 03/13/19 10:48 Neg mg/dL (Negative) 03/13/19 10:48 Sm (Negative) 03/13/19 10:48 Neg (Negative) 03/13/19 10:48 Neg (Negative) 03/13/19 10:48 < 2.0 mg/dL (<2.0) 03/13/19 10:48 Ur Leukocyte Esterase Neg (Negative) 03/13/19 10:48 1.0 /HPF (0.0-6.0) 03/13/19 10:48 1.0 /HPF (0.0-6.0) 03/13/19 10:48 Few /HPF 03/13/19 10:48 Presumptive negative 03/13/19 10:48 Presumptive negative 03/13/19 10:48 Ur Barbiturates Screen Presumptive negative 03/13/19 10:48 Ur Phencyclidine Scrn Presumptive negative 03/13/19 10:48 Ur Amphetamines Screen Presumptive negative 03/13/19 10:48 U Benzodiazepines Scrn Presumptive negative 03/13/19 10:48 Presumptive negative 03/13/19 10:48 U Marijuana (THC) Screen Presumptive negative 03/13/19 10:48 Disclamer 03/13/19 10:48 Plasma/Serum Alcohol 0.22 % (0-0.07) H 03/13/19 10:08 - Imaging and Cardiology EKG: report reviewed, image reviewed CT Scan - head: report reviewed, image reviewed Assessment and Plan Advance Directives: No (cognition) VTE prophylaxis?: Chemical Plan of care discussed with patient/family: Yes - Patient Problems (1) Alcohol abuse Current Visit: Yes Status: Acute Plan to address problem: I do feel this is old and the majority of patient's symptoms are secondary to alcohol use with the concurrent use of Seroquel and Ativan and lithium. May benefit from lithium level. The patient may require a follow-up rehabilitation stent upon discharge. Patient waiting to alcohol withdrawal. We'll place patient on CIWA protocol. With addition of lithium. (2) Stroke Current Visit: Yes Status: Acute Qualifiers: CVA mechanism: unspecified Qualified Code(s): I63.9 - Cerebral infarction, unspecified Plan to address problem: At present unable to rule out CVA. Unlikely I do think his focal deficit is old at this time. We'll hold current antipsychotic medications. Place patient on CIWA protocol and will reintroduce them as indicated. We'll restart Seroquel at some point and give Ativan is with the CIWA protocol. Will follow with MRI MRA to rule out CVA.
[2019-03-13] MEDS: LORazepam 2 MG/ML VIAL IV PRN (18:12)
[2019-03-14] MEDS: LORazepam 2 MG/ML VIAL IV PRN ×2 (05:29→15:54)
[2019-03-14] MEDS: ENOXAPARIN 40 MG/0.4 ML INJ SUB-Q SCH (09:46)
--- NOTE | 2019-03-14 11:31 | Progress Note ---
Assessment and Plan - Patient Problems (1) Alcohol abuse Current Visit: Yes Status: Acute Plan to address problem: I do feel this is old and the majority of patient's symptoms are secondary to alcohol use with the concurrent use of Seroquel and Ativan and lithium. May benefit from lithium level. The patient may require a follow-up rehabilitation stent upon discharge. Patient waiting to alcohol withdrawal. We'll place patient on CIWA protocol. With addition of lithium. (2) Stroke Current Visit: Yes Status: Acute Qualifiers: CVA mechanism: unspecified Qualified Code(s): I63.9 - Cerebral infarction, unspecified Plan to address problem: At present unable to rule out CVA. Unlikely I do think his focal deficit is old at this time. We'll hold current antipsychotic medications. Place patient on CIWA protocol and will reintroduce them as indicated. We'll restart Seroquel at some point and give Ativan is with the CIWA protocol. Will follow with MRI MRA to rule out CVA. History Interval history: Patient now doing much better. Sitting up in bed alert talking in full sentences. No longer has facial droop. Very mild problem with dentures. With speaking. Patient states he wants to go to [place] now to help with his alcohol. He has no headaches no weakness feels good. Are pending. Hospitalist Physical - Constitutional Vitals: Temp Pulse Resp BP Pulse Ox 97.9 F 79 18 151/98 95 03/14/19 08:08 03/14/19 08:08 03/14/19 08:08 03/14/19 08:08 03/14/19 08:08 General appearance: Present: no acute distress, well-nourished - EENT Eyes: Present: PERRL, EOM intact ENT: hearing intact, clear oral mucosa, dentition normal, other (very minimal facial droop most likely secondary to alcohol and has always been neurologic he said.) - Neck Neck: Present: supple, normal ROM - Respiratory Respiratory effort: normal - Cardiovascular Rhythm: irregularly irregular - Extremities Extremities: no ischemia, No edema, normal temperature, normal color Peripheral Pulses: within normal limits - Abdominal General gastrointestinal: soft, non-tender, non-distended, normal bowel sounds, no hepatomegaly, no splenomegaly, no mass - Integumentary Integumentary: Present: clear, warm, dry - Psychiatric Psychiatric: appropriate mood/affect, intact judgment & insight, memory intact - Neurologic Neurologic: moves all extremities Results - Labs CBC & Chem 7: 03/13/19 10:08 03/13/19 10:08 Labs: Laboratory Last Values WBC 7.3 K/mm3 (4.5-11.0) 03/13/19 10:08 RBC 4.28 M/mm3 (3.65-5.03) 03/13/19 10:08 Hgb 12.9 gm/dl (11.8-15.2) 03/13/19 10:08 Hct 38.4 % (35.5-45.6) 03/13/19 10:08 MCV 90 fl (84-94) 03/13/19 10:08 MCH 30 pg (28-32) 03/13/19 10:08 MCHC 34 % (32-34) 03/13/19 10:08 RDW 14.2 % (13.2-15.2) 03/13/19 10:08 Plt Count 171 K/mm3 (140-440) 03/13/19 10:08 Lymph % (Auto) 27.5 % (13.4-35.0) 03/13/19 10:08 [place] % (Auto) 8.2 % (0.0-7.3) H 03/13/19 10:08 Eos % (Auto) 2.3 % (0.0-4.3) 03/13/19 10:08 Baso % (Auto) 0.8 % (0.0-1.8) 03/13/19 10:08 Lymph # 2.0 K/mm3 (1.2-5.4) 03/13/19 10:08 [place] # 0.6 K/mm3 (0.0-0.8) 03/13/19 10:08 Eos # 0.2 K/mm3 (0.0-0.4) 03/13/19 10:08 Baso # 0.1 K/mm3 (0.0-0.1) 03/13/19 10:08 Seg Neutrophils % 61.2 % (40.0-70.0) 03/13/19 10:08 Seg Neutrophils # 4.5 K/mm3 (1.8-7.7) 03/13/19 10:08 PT 14.0 Sec. (12.2-14.9) 03/13/19 10:08 INR 1.11 (0.87-1.13) 03/13/19 10:08 APTT 26.4 Sec. (24.2-36.6) 03/13/19 10:08 Sodium 143 mmol/L (137-145) 03/13/19 10:08 Potassium 3.6 mmol/L (3.6-5.0) 03/13/19 10:08 Chloride 105.6 mmol/L (98-107) 03/13/19 10:08 Carbon Dioxide 20 mmol/L (22-30) L 03/13/19 10:08 21 mmol/L 03/13/19 10:08 BUN 14 mg/dL (9-20) 03/13/19 10:08 0.7 mg/dL (0.8-1.5) L 03/13/19 10:08 Estimated GFR > 60 ml/min 03/13/19 10:08 20 % 03/13/19 10:08 Glucose 99 mg/dL (75-100) 03/13/19 10:08 POC Glucose 110 (70-105) H 03/13/19 09:25 Calcium 8.6 mg/dL (8.4-10.2) 03/13/19 10:08 0.70 mg/dL (0.1-1.2) 03/13/19 10:08 AST 18 units/L (5-40) 03/13/19 10:08 ALT 14 units/L (7-56) 03/13/19 10:08 71 units/L (35-129) 03/13/19 10:08 238 units/L (55-170) H 03/13/19 10:08 CK-MB (CK-2) 6.5 ng/mL (0.0-4.0) H 03/13/19 10:08 CK-MB (CK-2) Rel Index 2.7 (0-4) 03/13/19 10:08 < 0.010 ng/mL (0.00-0.029) 03/13/19 10:08 7.0 g/dL (6.3-8.2) 03/13/19 10:08 4.3 g/dL (3.9-5) 03/13/19 10:08 1.6 % 03/13/19 10:08 Straw (Yellow) 03/13/19 10:48 Clear (Clear) 03/13/19 10:48 6.0 (5.0-7.0) 03/13/19 10:48 Ur Specific [place] 1.008 (1.003-1.030) 03/13/19 10:48 <15 mg/dl mg/dL (Negative) 03/13/19 10:48 Neg mg/dL (Negative) 03/13/19 10:48 Neg mg/dL (Negative) 03/13/19 10:48 Sm (Negative) 03/13/19 10:48 Neg (Negative) 03/13/19 10:48 Neg (Negative) 03/13/19 10:48 < 2.0 mg/dL (<2.0) 03/13/19 10:48 Ur Leukocyte Esterase Neg (Negative) 03/13/19 10:48 1.0 /HPF (0.0-6.0) 03/13/19 10:48 1.0 /HPF (0.0-6.0) 03/13/19 10:48 Few /HPF 03/13/19 10:48 Presumptive negative 03/13/19 10:48 Presumptive negative 03/13/19 10:48 Ur Barbiturates Screen Presumptive negative 03/13/19 10:48 Ur Phencyclidine Scrn Presumptive negative 03/13/19 10:48 Ur Amphetamines Screen Presumptive negative 03/13/19 10:48 U Benzodiazepines Scrn Presumptive negative 03/13/19 10:48 Presumptive negative 03/13/19 10:48 U Marijuana (THC) Screen Presumptive negative 03/13/19 10:48 Disclamer 03/13/19 10:48 Plasma/Serum Alcohol 0.22 % (0-0.07) H 03/13/19 10:08 Active Medications - Current Medications Current Medications: Generic Name Dose Route Start Last Admin Trade Name Freq PRN Reason Stop Dose Admin Acetaminophen 650 mg 03/13/19 12:06 Tylenol PO Q4H PRN Pain MILD(1-3)/Fever >100.5/JHA Chlordiazepoxide HCl 50 mg 03/13/19 12:13 03/13/19 14:25 Librium PO 50 mg Q1HR PRN Administration CIWA-Ar 8-15 Enoxaparin Sodium 40 mg 03/13/19 13:00 03/14/19 09:46 Lovenox SUB-Q 40 mg QDAY MAMTA Administration Lorazepam 2 mg 03/13/19 12:13 03/14/19 05:29 Ativan IV 2 mg Q1HR PRN Administration CIWA-Ar 8-15 Morphine Sulfate 2 mg 03/13/19 12:06 Morphine IV Q4H PRN Pain, Moderate (4-6) Ondansetron HCl 4 mg 03/13/19 12:06 Zofran IV Q8H PRN Nausea And Vomiting Sodium Chloride 10 ml 03/13/19 13:00 03/14/19 09:47 Sodium Chloride Flush Syringe 10 Ml IV 10 ml BID MAMTA Administration Sodium Chloride 10 ml 03/13/19 12:06 Sodium Chloride Flush Syringe 10 Ml IV PRN PRN LINE FLUSH
--- NOTE | 2019-03-14 11:35 | Discharge Summary ---
Providers - Providers Date of Admission: 03/13/19 10:52 Date of discharge: 03/14/19 Attending physician: CABRERA ACOSTA 03/13/19 13:17 Consult to Wound/ET Nurse [CONS] Routine Reason For Exam: wound eval Primary care physician: ASSOCIATE PROFESSOR OF FORESTRY Hospitalization Condition: Fair Pertinent studies: MRI results within normal limits no CVA. Hospital course: She presented with what appeared to be facial droop. Family thought it may have been new. Patient states it's always been there. For long time. I did see what he mentioned but it did improve after acute alcohol intoxication. Patient responded very well CIWA protocol doing well wants to go to [place] for further treatment of alcohol. Disposition: DC-01 TO HOME OR SELFCARE - Discharge Diagnoses (1) Alcohol abuse Status: Acute Comment: We'll transfer to report. Did speak to vp digital marketing social media and crm they stated patient can go walk himself in for help. (2) Stroke Status: Acute Qualifiers: CVA mechanism: unspecified Qualified Code(s): I63.9 - Cerebral infarction, unspecified Comment: No evidence of stroke on CT scan/MRI. Core Measure Documentation - Palliative Care Palliative Care/ Comfort Measures: Not Applicable - Core Measures Any of the following diagnoses?: none Exam - Constitutional Vitals: Temp Pulse Resp BP Pulse Ox 97.9 F 79 18 151/98 95 03/14/19 08:08 03/14/19 08:08 03/14/19 08:08 03/14/19 08:08 03/14/19 08:08 General appearance: Present: no acute distress, well-nourished - EENT Eyes: Present: PERRL ENT: hearing intact, clear oral mucosa, other (minimal lip asymmetry) - Neck Neck: Present: supple, normal ROM - Respiratory Respiratory effort: normal Respiratory: bilateral: CTA - Cardiovascular Heart Sounds: Present: S1 & S2. Absent: rub, click - Extremities Extremities: pulses symmetrical, No edema Peripheral Pulses: within normal limits - Abdominal General gastrointestinal: Present: soft, non-tender, non-distended, normal bowel sounds Male genitourinary: Present: normal - Integumentary Integumentary: Present: clear, warm, dry - Musculoskeletal Musculoskeletal: gait normal, strength equal bilaterally - Psychiatric Psychiatric: appropriate mood/affect, intact judgment & insight - Neurologic Neurologic: CNII-XII intact, moves all extremities Plan Activity: no restrictions Diet: regular, other ([place] no etoh) Follow up with: PRIMARY CARE, [Primary Care Provider] - 3-5 Days Prescriptions: Multivitamin with Folic Acid [Cvs One Daily Essential Tablet] 400 mcg PO QDAY #30 tablet chlordiazePOXIDE [Librium] 25 mg PO Q6H PRN #25 capsule PRN Reason: Alcohol Withdrawal Quetiapine Fumarate [SEROquel] 300 mg PO HS #30 tablet Sertraline [Zoloft] 50 mg PO QDAY #30 tablet
--- NOTE | 2019-03-14 14:45 | Magnetic Resonance Report ---
MRI BRAIN WITHOUT CONTRAST INDICATION / CLINICAL INFORMATION: cva. TECHNIQUE: Multiplanar, multisequence MR images of the brain were obtained. COMPARISON: Head CT 03/13/2019 FINDINGS: BRAIN / INTRACRANIAL CONTENTS: Parenchymal volume loss is demonstrated. Dilatation of the cortical mckoy lci and ventricular system is noted. This is greater than expected for the patient's stated age of 58 . Incidental note is made of persistence of the cava septum pellucidum. Several scattered subcortical , periventricular and deep white matter hyperintensities noted consistent with mild microvascular isc hemic changes. There is no mass effect. No evidence of intracranial hemorrhage or extra-axial fluid c ollection is seen. There is no indication of remote cortical infarction. Diffusion weighted scans are negative. There is no indication of acute ischemic injury. The brainstem and cerebellum have an unremarkable appearance. CRANIOCERVICAL JUNCTION: No abnormalities are identified at the craniocervical junction. VASCULAR FLOW-VOIDS: Normal flow-voids are present within the major intracranial vessels. ORBITS: The orbits have an unremarkable appearance. SINUSES / MASTOIDS: There is no indication of inflammatory disease in the paranasal sinuses or mastoi d air cells. IMPRESSION: 1. Parenchymal volume loss greater than expected for age 58 years. 2. Otherwise negative MRI brain without contrast. Signer Name: Luan Gillespie MD Signed: 03/14/2019 2:41 PM Workstation Name: [id number]
[2019-03-14 16:31] VITALS: BP 164/101
== END 2019-03-14 18:50 | disposition home or self-care (01) | DRG 92 ==
LOC: ED 08:51 → 4A 10:52
PROVIDERS: ADMIT Internal Medicine; ATTEND Internal Medicine
DX: R29.810 Facial weakness (principal); F10.29 Alcohol dependence with unspecified alcohol-induced disorder; I10 Essential (primary) hypertension; Y90.9 Presence of alcohol in blood, level not specified; K21.9 Gastro-esophageal reflux disease without esophagitis; F31.9 Bipolar disorder, unspecified; Z79.899 Other long term (current) drug therapy; Z86.73 Personal history of transient ischemic attack (TIA), and cerebral infarction without residual deficits
CPT/HCPCS: 36415; 70450; 70551; 80048; 80053; 80178; 80307; 80320; 81001; 82550; 82553; 82962; 83735; 84484; 85025; 85610; 85730; 93005; 93010; 96365; 96375; G0378; G0480; J1650; J2060; J3411; J7030

== ENCOUNTER 2019-03-15 08:45 | Emergency (ER) | payer MEDICARE ==
--- NOTE | 2019-03-15 10:35 | Emergency Department Report ---
ED Psych HPI - General Chief Complaint: Altered Mental Status Stated Complaint: AMS Time Seen by Provider: 03/15/19 10:02 Source: patient Mode of arrival: Ambulatory - History of Present Illness Initial Comments: Patient is 58 years old male with history of bipolar disorder and seizure. Patient walked into the ER triage area confused and refuses to give his name. Patient was recently discharged from the hospital for stroke workup with a negative MRI brain. Patient is alert, oriented 3 in no acute distress. Patient stated that he just doesn't feel good. She denied suicidal or homicidal ideation. He also denied any visual or auditory hallucination. Patient is disshelved and unkept. Patient has history of alcoholism with multiple admissions for alcohol rehabilitation. MD Complaint: altered mental status - Related Data Home Medications Medication Instructions Recorded Confirmed Last Taken [place] Carbonate 1 tab PO BID 03/15/19 03/15/19 Unknown Sertraline [Zoloft] 50 mg PO QDAY 03/15/19 03/15/19 Unknown Quetiapine Fumarate [SEROquel] 300 mg PO HS 03/16/19 03/16/19 Unknown Allergies Allergy/AdvReac Type Severity Reaction Status Date / Time No Known Allergies Allergy Verified 11/12/17 17:06 ED Review of Systems ROS: Stated complaint: AMS Other details as noted in HPI Comment: All other systems reviewed and negative Constitutional: denies: chills, fever Respiratory: denies: cough, shortness of breath, SOB with exertion Cardiovascular: denies: chest pain, palpitations Gastrointestinal: denies: abdominal pain, nausea, vomiting Musculoskeletal: denies: back pain Neurological: confusion. denies: headache, weakness, numbness, paresthesias, abnormal gait ED Past Medical Hx - Past Medical History Previous Medical History?: Yes Hx Hypertension: Yes Hx Congestive Heart Failure: No Hx Diabetes: No Hx Seizures: Yes Hx Psychiatric Treatment: Yes (Bipolar) Hx Asthma: No Hx COPD: No - Surgical History Past Surgical History?: Yes Additional Surgical History: trach - Social History Smoking Status: Unknown if ever smoked Substance Use Type: Alcohol - Medications Home Medications: Home Medications Medication Instructions Recorded Confirmed Last Taken Type [place] Carbonate 1 tab PO BID 03/15/19 03/15/19 Unknown History Sertraline [Zoloft] 50 mg PO QDAY 03/15/19 03/15/19 Unknown History Quetiapine Fumarate [SEROquel] 300 mg PO HS 03/16/19 03/16/19 Unknown History ED Physical Exam - General Limitations: No Limitations General appearance: alert, in no apparent distress - Head Head exam: Present: atraumatic, normocephalic, normal inspection - Eye Eye exam: Present: normal appearance, PERRL - ENT ENT exam: Present: normal exam, normal orophraynx, mucous membranes moist - Neck Neck exam: Present: normal inspection, full ROM. Absent: tenderness, meningismu s, lymphadenopathy, thyromegaly - Respiratory Respiratory exam: Present: normal lung sounds bilaterally - Cardiovascular Cardiovascular Exam: Present: regular rate, normal rhythm, normal heart sounds - GI/Abdominal GI/Abdominal exam: Present: soft, normal bowel sounds. Absent: distended, tenderness, guarding, rebound, rigid, organomegaly, mass, bruit, pulsatile mass, hernia - Extremities Exam Extremities exam: Present: normal inspection, full ROM, normal capillary refill. Absent: tenderness, pedal edema, calf tenderness - Back Exam Back exam: Present: normal inspection, full ROM. Absent: CVA tenderness (R), CVA tenderness (L), muscle spasm, paraspinal tenderness, vertebral tenderness - Neurological Exam Neurological exam: Present: alert, oriented X3, CN II-XII intact. Absent: motor sensory deficit - Psychiatric Psychiatric exam: Present: depressed - Skin Skin exam: Present: warm, intact, normal color ED Course Vital Signs 03/15/19 03/15/19 03/15/19 08:46 14:51 19:10 Temperature 97.8 F 97.3 F L 97.8 F Pulse Rate 107 H 90 89 Respiratory 18 18 16 Rate Blood Pressure 146/99 Blood Pressure 163/93 166/90 [Left] O2 Sat by Pulse 97 97 100 Oximetry 03/15/19 03/16/19 03/16/19 21:31 01:00 02:32 Temperature 98.1 F 97.9 F Pulse Rate 81 84 90 Respiratory 16 20 16 Rate Blood Pressure Blood Pressure 175/93 173/85 146/86 [Left] O2 Sat by Pulse 96 95 98 Oximetry 03/16/19 07:48 Temperature 97.9 F Pulse Rate 91 H Respiratory 20 Rate Blood Pressure Blood Pressure 157/94 [Left] O2 Sat by Pulse 98 Oximetry ED Medical Decision Making - Lab Data Result diagrams: 03/15/19 10:21 03/15/19 10:21 Critical care attestation.: If time is entered above; I have spent that time in minutes in the direct care of this critically ill patient, excluding procedure time. ED Disposition Clinical Impression: Alcohol abuse Disposition: DC/TX-70 ANOTHER TYPE HLTHCARE Is pt being admited?: No Condition: Stable Referrals: PRIMARY CARE, [Primary Care Provider] - 3-5 Days
[2019-03-15 10:43] LABS: Basophils % (Auto) 0.5 % (0.0-1.8); Eosinophils # (Auto) 0.1 K/mm3 (0.0-0.4); Hematocrit 38.9 % (35.5-45.6); Hemoglobin 13.3 gm/dl (11.8-15.2); Lymphocytes # (Auto) 1.4 K/mm3 (1.2-5.4); Lymphocytes % (Auto) 14.3 % (13.4-35.0); Mean Corpuscular HGB Conc 34 % (32-34); Mean Corpuscular Volume 89 fl (84-94); Monocytes # (Auto) 0.7 K/mm3 (0.0-0.8); Monocytes % (Auto) 7.4 % (0.0-7.3); Platelet Count 155 K/mm3 (140-440); Red Blood Count 4.38 M/mm3 (3.65-5.03); Red Cell Distribution Width 14.2 % (13.2-15.2)
[2019-03-15 11:01] LABS: BUN/Creatinine Ratio 25; Blood Urea Nitrogen 20 mg/dL (9-20); Calcium 8.7 mg/dL (8.4-10.2); Hemolysis Index 4
[2019-03-15] MEDS ORDERED: ZOLPIDEM 5 MG TAB PO PRN (21:53)
[2019-03-16 02:13] LABS: Amphetamine Screen,Urine PRESUMPTIVE NEGATIVE; Cannabinoid Screen,Urine PRESUMPTIVE NEGATIVE; Cocaine Screen,Urine PRESUMPTIVE NEGATIVE; Methadone Screen,Urine PRESUMPTIVE NEGATIVE; Opiate Screen,Urine PRESUMPTIVE NEGATIVE
[2019-03-16 02:22] LABS: Bilirubin,Urine NEG (Negative); Blood,Urine SM (Negative); Color,Urine Yellow (Yellow); Mucus,Urine FEW /HPF; Protein,Urine <15 mg/dL mg/dL (Negative); Urobilinogen,Urine < 2.0 mg/dL (<2.0)
[2019-03-16 02:31] LABS: Benzodiazepines Screen,Urine PRESUMPTIVE POSITIVE
[2019-03-16 08:04] VITALS: BP 157/94
== END 2019-03-16 09:22 | disposition other institution (70) ==
LOC: ED 08:45
DX: F31.9 Bipolar disorder, unspecified (principal); I10 Essential (primary) hypertension; R56.9 Unspecified convulsions; Z79.899 Other long term (current) drug therapy
CPT/HCPCS: 36415; 80048; 80307; 80320; 81001; 85025; 99285; G0480

== ENCOUNTER 2019-04-06 14:47 | Emergency (ER) | payer MEDICARE ==
--- NOTE | 2019-04-06 15:14 | Emergency Department Report ---
Blank Doc - Documentation Documentation: 58-year-old male that presents with alcohol detox. Last drink was 2 days ago. This initial assessment/diagnostic orders/clinical plan/treatment(s) is/are subject to change based on patient's health status, clinical progression and re- assessment by fellow clinical providers in the ED. Further treatment and workup at subsequent clinical providers discretion. Patient/guardians urged not to elope from the ED as their condition may be serious if not clinically assessed and managed. Initial orders include: 1- Patient sent to MAIN for further evaluation and treatment 2- labs 3- UA
[2019-04-06 16:50] LABS: INR 1.02 (0.87-1.13)
[2019-04-06 17:06] LABS: Hemoglobin 12.3 gm/dl (11.8-15.2); Mean Corpuscular HGB Conc 34 % (32-34); Mean Corpuscular Volume 89 fl (84-94); Red Blood Count 4.04 M/mm3 (3.65-5.03); Red Cell Distribution Width 14.2 % (13.2-15.2)
[2019-04-06 17:08] LABS: Platelet Count 114 K/mm3 (140-440)
[2019-04-06 17:19] LABS: Partial Thromboplastin Time 52.7 Sec. (24.2-36.6)
[2019-04-06 17:32] LABS: Alanine Aminotransferase 20 units/L (7-56); Albumin 4.8 g/dL (3.9-5); BUN/Creatinine Ratio 14; Blood Urea Nitrogen 17 mg/dL (9-20); Calcium 9.4 mg/dL (8.4-10.2); Hemolysis Index 38
--- NOTE | 2019-04-06 18:39 | Emergency Department Report ---
ED Alcohol HPI - General Chief Complaint: Alcohol Stated Complaint: ALCHOLISIM Time Seen by Provider: 04/06/19 15:13 Source: patient Mode of arrival: Ambulatory Limitations: No Limitations - History of Present Illness Initial Comments: 58-year-old male with past medical history of bipolar disorder presents to the emergency Department seeking alcohol detoxification. States that he was sober for the last 3 years and just recently started utilization of alcohol over the last 2 weeks. States that he been excessively drinking wine and and and buccal and wants to recent admit himself to detoxification. Last drink was about 2 days ago and he knows he's been having some some issues with with tremors and occasional presyncope. Was bipolar disorder who takes lithium Zoloft Zoloft and Seroquel but reports that he has not missed any dosages. MD Complaint: alcohol intoxication, alcohol withdrawal, alcohol dependence Time Since Last Drink: 45 -: hour(s) Chronic Alcohol Use: Yes Recent Trauma: No Associated Symptoms: tremors, abdominal pain (has aches to upper abdomen). denies: vomiting, syncope, hematemesis, suicidality Treatments Prior to Arrival: none - Related Data Home Medications Medication Instructions Recorded Confirmed Last Taken [place] Carbonate 1 tab PO BID 03/15/19 03/15/19 Unknown Sertraline [Zoloft] 50 mg PO QDAY 03/15/19 03/15/19 Unknown Quetiapine Fumarate [SEROquel] 300 mg PO HS 03/16/19 03/16/19 Unknown Allergies Allergy/AdvReac Type Severity Reaction Status Date / Time No Known Allergies Allergy Verified 11/12/17 17:06 ED Review of Systems ROS: Stated complaint: ALCHOLISIM Other details as noted in HPI Comment: All other systems reviewed and negative ED Past Medical Hx - Past Medical History Previous Medical History?: Yes Hx Hypertension: Yes Hx Congestive Heart Failure: No Hx Diabetes: No Hx Seizures: Yes Hx Psychiatric Treatment: Yes (Bipolar) Hx Asthma: No Hx COPD: No - Surgical History Past Surgical History?: Yes Additional Surgical History: trach - Social History Smoking Status: Never Smoker Substance Use Type: Alcohol - Medications Home Medications: Home Medications Medication Instructions Recorded Confirmed Last Taken Type [place] Carbonate 1 tab PO BID 03/15/19 03/15/19 Unknown History Sertraline [Zoloft] 50 mg PO QDAY 03/15/19 03/15/19 Unknown History Quetiapine Fumarate [SEROquel] 300 mg PO HS 03/16/19 03/16/19 Unknown History ED Physical Exam - General Limitations: No Limitations General appearance: alert, in no apparent distress - Head Head exam: Present: atraumatic, normocephalic - Eye Eye exam: Present: normal appearance, PERRL, EOMI, scleral icterus - ENT ENT exam: Present: normal exam, normal orophraynx, mucous membranes moist - Neck Neck exam: Present: normal inspection - Respiratory Respiratory exam: Present: normal lung sounds bilaterally. Absent: respiratory distress, wheezes, rales - Cardiovascular Cardiovascular Exam: Present: regular rate, normal rhythm. Absent: systolic murmur, diastolic murmur, rubs, gallop - GI/Abdominal GI/Abdominal exam: Present: soft, tenderness (vague diffuse tenderness with deep palpation. No guarding noted. No Rovsing, no Muñoz Sharpe, no cricket sign.), normal bowel sounds - Rectal Rectal exam: Present: deferred - Extremities Exam Extremities exam: Present: normal inspection - Back Exam Back exam: Present: normal inspection - Neurological Exam Neurological exam: Present: alert, oriented X3, CN II-XII intact, other (resting tremor on noted) - Psychiatric Psychiatric exam: Present: normal affect, normal mood - Skin Skin exam: Present: warm, dry, intact, normal color. Absent: rash ED Course Vital Signs 04/06/19 04/06/19 04/06/19 14:53 15:13 16:53 Temperature 98.1 F 97.4 F L Pulse Rate 105 H 93 H Respiratory 18 18 18 Rate Blood Pressure 141/80 115/88 Blood Pressure 141/80 [Right] O2 Sat by Pulse 96 97 Oximetry 04/06/19 04/06/19 04/06/19 17:52 18:00 19:00 Temperature Pulse Rate Respiratory Rate Blood Pressure 118/80 135/85 Blood Pressure [Right] O2 Sat by Pulse 95 92 93 Oximetry 04/06/19 04/06/19 19:30 22:06 Temperature 97.9 F 97.4 F L Pulse Rate 85 82 Respiratory 16 16 Rate Blood Pressure Blood Pressure 138/73 113/72 [Right] O2 Sat by Pulse 95 97 Oximetry ED Medical Decision Making - Lab Data Result diagrams: 04/06/19 16:05 04/06/19 16:05 Critical care attestation.: If time is entered above; I have spent that time in minutes in the direct care of this critically ill patient, excluding procedure time. ED Disposition Clinical Impression: Alcohol dependence, Alcohol abuse Disposition: DC-01 TO HOME OR SELFCARE Is pt being admited?: No Does the pt Need Aspirin: No Condition: Stable Instructions: Alcohol Intoxication (ED), Abuse of Alcohol (ED), Alcohol Withdrawal (ED), Medical Clearance for Substance Abuse Treatment (ED) Additional Instructions: Please follow up with the detox facility for alcohol detox program tonight or first thing in the morning. Referrals: [facility], [facility] [Other] - [facility]
[2019-04-06] MEDS ORDERED: VITAMIN B-1 100 MG, FOLVITE 1 MG, INFUVITE 10 ML in NACL 0.9% 1000 ML 1,000 ML IV ONE (18:43)
[2019-04-06] MEDS ORDERED: ATIVAN IV STA (18:43)
[2019-04-06 20:43] LABS: Amphetamine Screen,Urine PRESUMPTIVE NEGATIVE; Benzodiazepines Screen,Urine PRESUMPTIVE NEGATIVE; Cannabinoid Screen,Urine PRESUMPTIVE NEGATIVE; Cocaine Screen,Urine PRESUMPTIVE NEGATIVE; Methadone Screen,Urine PRESUMPTIVE NEGATIVE; Opiate Screen,Urine PRESUMPTIVE NEGATIVE
[2019-04-06 22:07] VITALS: BP 113/72
[2019-04-06 22:10] LABS: Bilirubin,Urine NEG (Negative); Blood,Urine SM (Negative); Color,Urine Yellow (Yellow); Hyaline Casts,Urine 5 /LPF; Mucus,Urine FEW /HPF; Protein,Urine <15 mg/dL mg/dL (Negative); Urobilinogen,Urine < 2.0 mg/dL (<2.0)
== END 2019-04-07 02:05 | disposition home or self-care (01) ==
LOC: ED 14:47
DX: F10.120 Alcohol abuse with intoxication, uncomplicated (principal); I10 Essential (primary) hypertension; F31.9 Bipolar disorder, unspecified; Z90.89 Acquired absence of other organs; Z79.899 Other long term (current) drug therapy
CPT/HCPCS: 36415; 80053; 80178; 80307; 81001; 83690; 85025; 85610; 85730; 93005; 93010; 96365; 96366; 96375; 99284; J2060; J3411; J7030; 80320; G0480

== ENCOUNTER 2019-04-07 10:40 | Emergency (ER) | payer MEDICARE ==
[2019-04-07 10:46] VITALS: BP 151/91
== END 2019-04-07 16:07 | disposition left against medical advice (07) ==
LOC: ED 10:40
DX: R07.89 Other chest pain (principal); Z53.21 Procedure and treatment not carried out due to patient leaving prior to being seen by health care provider